=== PATIENT | female | born 1995 | race Caucasian/White ===

== ENCOUNTER → 2017-12-31 20:22 | Emergency (ER) | payer OTHER ==
[~2017-12-31 20:22] MED LIST: Ketorolac INJ* 30 MG/ML 1 ML VIAL IV PUSH ONE; Metoclopramide IV* 5 MG/ML 2 ML VIAL IV SLOW PU ONE; NS 0.9% 1000 ML* 1,000 ML IV ONE; Phenazopyridine TAB* 100 MG PO ONE
[2017-12-31 21:53] LABS: ABS Basophils 0 10^3/ul (0-0.2); ABS Eosinophils 0 10^3/ul (0-0.6); ABS Lymphocytes 0.9 10^3/ul (1.0-4.8); ABS Monocytes 0.3 10^3/ul (0-0.8); ABS Neutrophils 9.1 10^3/ul (1.5-7.7); ABS Nucleated RBC 0 10^3/ul; Eosinophil % 0.3 % (0-6); Hematocrit 44 % (35-47); Hemoglobin 15.3 g/dl (12.0-16.0); Lymphocyte % 8.3 % (25-47); Mean Corpuscular HGB Conc 35 g/dl (31-36); Mean Corpuscular Hemoglobin 32 pg (27-31); Mean Corpuscular Volume 93 fL (80-97); Mean Platelet Volume 8 um3 (7.4-10.4); Nucleated Red Blood Cells % 0.1; Platelet Count 245 10^3/ul (150-450); Red Blood Count 4.76 10^6/ul (4.0-5.4); Red Cell Distribution Width 13 % (10.5-15); White Blood Count 10.4 10^3/ul (3.5-10.8)
[2017-12-31 22:07] LABS: EGFR Non-African American 88.9 (>60)
[2017-12-31 22:14] LABS: Urine Appearance Clear; Urine Blood Negative (Negative); Urine Color Straw; Urine Ketones Negative (Negative); Urine Protein Negative (Negative); Urine Specific Gravity 1.004 (1.010-1.030); Urine Urobilinogen Negative (Negative)
[2017-12-31 22:49] VITALS: BP 120/78
--- NOTE | 2017-12-31 22:55 | ED ---
Gee Alcaraz Julia, scribed for Malik Botello MD on 12/31/17 at 2140 . Abdominal Pain/Female - HPI Summary HPI Summary: This patient is a 22 year old F presenting to [facility] with a chief complaint of right flank pain since this morning. Patient reports worsening lower back pain, vomiting, diarrhea, chills, urinary frequency and dysuria. The patient rates the pain 7/10 in severity. Patient reports frequent UTIs and kidney infections. Medications reviewed. - History of Current Complaint Chief Complaint: EDFlankPain Stated Complaint: N/D, BACK PAIN Time Seen by Provider: 12/31/17 21:06 Hx Obtained From: Patient Hx Last Menstrual Period: 12/23/17 Onset/Duration: Gradual Onset, Lasting Hours, Still Present Timing: Constant Pain Intensity: 7 Pain Scale Used: 0-10 Numeric Location: Flank - right Radiates: Yes Radiates to: Back Associated Signs and Symptoms: Positive: Fever, Urinary Symptoms - frequency and dysuria, Vomiting, Diarrhea Simlar Episode/Dx as:: UTI, kidney infection Allergies/Adverse Reactions: Allergies Allergy/AdvReac Type Severity Reaction Status Date / Time No Known Allergies Allergy Verified 12/31/17 20:30 PMH/Surg Hx/FS Hx/Imm Hx History: Reports: Hx Kidney Infection, Other Problems/Disorders - UTI EENT History: Denies: Hx Deafness Infectious Disease History: No Infectious Disease History: Denies: Traveled Outside the [place] in Last 30 Days - Family History Known Family History: Positive: Diabetes - Social History Occupation: Student Alcohol Use: Occasionally Substance Use Type: Reports: None Smoking Status (MU): Never Smoked Tobacco Review of Systems Positive: Chills Positive: Abdominal Pain, Vomiting, Diarrhea Positive: dysuria, frequency, flank pain Positive: Myalgia - low back pain All Other Systems Reviewed And Are Negative: Yes Physical Exam - Summary Physical Exam Summary: VITAL SIGNS: Reviewed. GENERAL: Patient is a well-developed and nourished female who is lying comfortable in the stretcher. Patient is not in any acute respiratory distress. HEAD AND FACE: No signs of trauma. No ecchymosis, hematomas or skull depressions. No sinus tenderness. EYES: PERRLA, EOMI x 2, No injected conjunctiva, no nystagmus. EARS: Hearing grossly intact. Ear canals and tympanic membranes are within normal limits. MOUTH: Oropharynx within normal limits. NECK: Supple, trachea is midline, no adenopathy, no JVD, no carotid bruit, no c- spine tenderness, neck with full ROM. CHEST: Symmetric, no tenderness at palpation SKIN: Dry and warm LUNGS: Clear to auscultation bilaterally. No wheezing or crackles. CVS: Regular rate and rhythm, S1 and S2 present, no murmurs or gallops appreciated. ABDOMEN: Soft with mild bilateral CVA tenderness. No signs of distention. No rebound no guarding, and no masses palpated. Bowel sounds are normal. EXTREMITIES: FROM in all major joints, no edema, no cyanosis or clubbing. NEURO: Alert and oriented x 3. No acute neurological deficits. Speech is normal and follows commands. Triage Information Reviewed: Yes Vital Signs On Initial Exam: Initial Vitals Temp Pulse Resp BP Pulse Ox 98.2 F 99 15 128/88 100 12/31/17 20:27 12/31/17 20:27 12/31/17 20:27 12/31/17 20:27 12/31/17 20:27 Vital Signs Reviewed: Yes Diagnostics - Vital Signs Vital Signs Temp Pulse Resp BP Pulse Ox 12/31/17 20:27 98.2 F 99 15 128/88 100 - Laboratory Result Diagrams: 12/31/17 21:40 12/31/17 21:40 Lab Statement: Any lab studies that have been ordered have been reviewed, and results considered in the medical decision making process. Abdominal Pain Fem Course/Dx - Course Course Of Treatment: Patient presents with right flank pain since this morning. Patient reports worsening lower back pain, vomiting, diarrhea, chills, urinary frequency and dysuria. Bloodwork and UA is unremarkable. Patient is given Toradol, Reglan, Pyridium, and IV fluids. - Diagnoses Provider Diagnoses: Dysuria Discharge - Discharge Plan Condition: Stable Disposition: HOME Patient Education Materials: Dysuria (ED) Referrals: [facility] [Primary Care Provider] - If Needed Additional Instructions: RETURN TO THE EMERGENCY DEPARTMENT FOR CHANGING OR WORSENING SYMPTOMS. The documentation as recorded by the Gee corona Julia accurately reflects the service I personally performed and the decisions made by Rosmery plummer Abdul, MD.
== END | disposition home or self-care (01) ==
LOC: ED 20:22
DX: R50.9 Fever, unspecified (principal); R10.84 Generalized abdominal pain; R19.7 Diarrhea, unspecified; R30.0 Dysuria
CPT/HCPCS: 36415; 80053; 81003; 83605; 83735; 84702; 85025; 86140; 87040; 96374; 96375; 99282; J1885; J2765